=== PATIENT | female | born 1980 | race American Indian/Alaskan Native ===

== ENCOUNTER 2016-12-03 20:22 | Emergency (ER) | payer MEDICAID ==
[2016-12-03 21:19] VITALS: BP 118/97
[2016-12-03 23:10] LABS: Basophils % (Auto) 0.6 % (0.0-1.8); Eosinophils % (Auto) 0.6 % (0.0-4.3); Hematocrit 39.4 % (30.3-42.9); Hemoglobin 13.2 gm/dl (10.1-14.3); Mean Corpuscular HGB Conc 34 % (30-34); Mean Corpuscular Hemoglobin 31 pg (28-32); Mean Corpuscular Volume 92 fl (79-97); Platelet Count 295 K/mm3 (140-440); Red Blood Count 4.28 M/mm3 (3.65-5.03); Red Cell Distribution Width 12.9 % (13.2-15.2); White Blood Count 9.3 K/mm3 (4.5-11.0)
[2016-12-03 23:22] LABS: Anion Gap 17 mmol/L; Blood Urea Nitrogen 7 mg/dL (7-17); Calcium 9.7 mg/dL (8.4-10.2); Carbon Dioxide 25 mmol/L (22-30); Glucose 87 mg/dL (65-100); Potassium 3.4 mmol/L (3.6-5.0); Sodium 142 mmol/L (137-145)
--- NOTE | 2016-12-05 10:55 | ED Elopement Review ---
ED Pt Elopement review - Results review Lab results: Laboratory Tests 12/03/16 12/03/16 22:11 22:11 WBC 9.3 RBC 4.28 Hgb 13.2 Hct 39.4 MCV 92 MCH 31 MCHC 34 RDW 12.9 L Plt Count 295 Lymph % (Auto) 19.6 [place] % (Auto) 5.7 Eos % (Auto) 0.6 Baso % (Auto) 0.6 Lymph # 1.8 [place] # 0.5 Eos # 0.1 Baso # 0.1 Seg Neutrophils % 73.5 H Seg Neutrophils # 6.9 Sodium 142 Potassium 3.4 L Chloride 103.0 Carbon Dioxide 25 Anion Gap 17 BUN 7 Creatinine 0.7 Estimated GFR > 60 BUN/Creatinine Ratio 10.00 Glucose 87 Calcium 9.7 Troponin T < 0.010 - Call Back decision Pt Call Back Decision: No action required
== END 2016-12-04 01:13 | disposition left against medical advice (07) ==
LOC: ED 20:22
DX: R07.9 Chest pain, unspecified (principal); Z53.21 Procedure and treatment not carried out due to patient leaving prior to being seen by health care provider
CPT/HCPCS: 36415; 80048; 84484; 85025; 93005; 93010

== ENCOUNTER 2017-07-12 16:04 | Outpatient (CLI) | payer OTHER ==
--- NOTE | 2017-07-13 13:59 | Magnetic Resonance Report ---
MRI CERVICAL SPINE WITHOUT CONTRAST: 07/12/17 CLINICAL: Neck pain. TECHNIQUE: Sagittal T1,T2 and STIR and axial gradient T2* sequences on a 1.5 Nancy magnet. FINDINGS:Normal vertebral body height, alignment and disc spaces. Normal marrow signal is normal disc signal. The cerebellar tonsils are in normal position. The spinal cord is normal size with normal signal. C2-3: Intact. C3-4:Intact. C4-5: Intact. C5-6:Intact. C6-7:Intact. C7-T1:Intact. IMPRESSION: Normal study.
--- NOTE | 2017-07-14 08:13 | Magnetic Resonance Report ---
MRI UPPER EXTREMITY JOINT LEFT WITHOUT CONTRAST History: Left shoulder pain, impingement syndrome of left shoulder. Comparison: None. Technique: Multisequence, multiplanar MRI with and without fat suppression. No IV gadolinium. Findings: There is increased intrinsic signal and thickening on the T2-weighted images within the conjoined portion of the supraspinatus/infraspinatus tendons. This appears to represent a moderate tendinosis although a partial thickness articular surface tear measuring less than 50% could be considered. No large full thickness defect is identified. The subscapularis tendon and teres minor tendon are within normal limits. The biceps tendon and its anchor upon the superior labrum appear intact. No biceps tendinopathy or labral abnormality is detected although arthrogram was not performed. Minimal osteoarthritic changes and subchondral bone marrow edema are identified at the acromioclavicular joint. No significant hypertrophic spurring or hypertrophy. There may be a small acromial spur but there are no definitive findings of impingement. Please correlate with patient's symptoms. Bone marrow signal throughout the remainder of the left shoulder is within normal limits. No evidence for fracture or bone lesion. Normal articulation at the glenohumeral joint. Para-articular musculature is within normal limits. There is trace fluid in the subacromial/subdeltoid bursa. No significant joint effusion. IMPRESSION: Tendinosis versus partial thickness tear of the distal supraspinatus/infraspinatus tendons as described. Trace bursal fluid. Minimal osteoarthritic changes are suspected at the a.c. joint.
== END 2017-07-12 16:05 | disposition home or self-care (01) ==
LOC: MRI 16:04
DX: M47.812 Spondylosis without myelopathy or radiculopathy, cervical region (principal); M75.42 Impingement syndrome of left shoulder
CPT/HCPCS: 72141

== ENCOUNTER 2021-05-18 10:04 | Outpatient (CLI) | payer OTHER ==
--- NOTE | 2021-05-18 11:26 | Mammography Report ---
DIGITAL SCREENING MAMMOGRAM WITH CAD, 05/18/2021 CLINICAL INFORMATION / INDICATION: Routine screening TECHNIQUE: Digital bilateral 2D mammography was obtained in the craniocaudal and mediolateral obliqu e projections. This examination was interpreted with the benefit of Computer-Aided Detection analysis . COMPARISON: None, baseline FINDINGS: Breast Density: There are scattered areas of fibroglandular density. No dominant mass, suspicious calcifications, or architectural distortion in either breast. IMPRESSION: No mammographic evidence of malignancy. Follow up recommendation: Routine yearly BI-RADS Category 1: NEGATIVE A "normal" or negative report should not discourage follow up or biopsy of a clinically significant f inding. A written summary of these findings will be mailed to the patient. The patient will be entered into a mammography reporting system which will generate a reminder letter for the patient's next appointmen t at the appropriate interval. The [employer] recommends yearly mammograms starting at age 40 and continuing as l zachariah as a woman is in good health. Breast MRI is recommended for women with an approximate 20-25% or greater lifetime risk of breast cancer, including women with a strong family history of breast or ova candi cancer or who have been treated for Hodgkin's disease. Signer Name: Gabe Agudelo MD Signed: 05/18/2021 11:22 AM Workstation Name: [id number]
== END 2021-05-18 10:05 | disposition home or self-care (01) ==
LOC: MAMMO 10:04
PROVIDERS: ATTEND Obstetrics & Gynecology
DX: Z12.31 Encounter for screening mammogram for malignant neoplasm of breast (principal); N64.89 Other specified disorders of breast
CPT/HCPCS: 77067